=== PATIENT | female | born 1935 | race Caucasian/White ===

== ENCOUNTER → 2017-08-16 | Outpatient (CLI) | payer OTHER ==
[~2017-08-16] MED LIST: ACIDOPHILUS1 EAC2 PO; ALBU90OI INH; ALBU90OI61 INH; AMLO5 PO; ASPI325 PO; ASPI81CH PO; ATOR10 PO; AZIT250 PO; BUDE.25 INH; CALMAGZIN PO; CHOL10002 PO; CLON.1 PO; CLOP75 PO; CYMBALTA; DILT180 PO; DILT240ER PO; DILTIAZEM 24HR180 MG PO; DOCU100 PO; DOXE25 PO; Dulcolax5 MG PO; ESTR2 PO; FLUSAL5005 IH; FURO20 PO; GAVILAX17 GM PO; HYDACE5 PO; HYDCHL25 PO; HYDRA50 PO; IBUP400 PO; IPRAOI INH; Ipratr-Albuterol3 ML INH; LEVFLO500 PO; LEVO750 PO; LISI20 PO; LORA.5 PO; LORA10ER PO; METAMUCIL POWD174 GM PO; METO50 PO; Miralax17 GM PO; OMEP20ER PO; OXYB5 PO; POTCHL10ER PO; PRED10 PO; PREMARIN; PSYL5.85P PO; SALONPAS PATCH1 EACH TOP; SALONPAS TOP; Trihexyphenidyl2 MG PO
[2017-08-16 12:13] LABS: BASOPHILS ABSOLUTE AUTO 0.03 K/mm3 (0.00-0.23); BASOPHILS PERCENT AUTO 0 % (0-2); EOSINOPHILS ABSOLUTE AUTO 0.02 K/mm3 (0.00-0.68); EOSINOPHILS PERCENT AUTO 0 % (0-6); Hematocrit 26.8 % (33.0-51.0); Hemoglobin 9.1 g/dL (11.5-16.0); IMMATURE GRAN ABSOLUTE AUTO 0.09 K/mm3 (0.00-0.10); IMMATURE GRAN PERCENT AUTO 1 % (0-1); LYMPHOCYTES ABSOLUTE AUTO 1.24 K/mm3 (0.84-5.20); LYMPHOCYTES PERCENT AUTO 11 % (21-46); MONOCYTES ABSOLUTE AUTO 1.35 K/mm3 (0.16-1.47); MONOCYTES PERCENT AUTO 12 % (4-13); Mean Corpuscular HGB 29.6 pg (26.0-34.0); Mean Corpuscular Volume 87 fL (80-100); Mean Platelet Volume 11.2 fL (9.1-12.4); NEUTROPHILS ABSOLUTE AUTO 8.55 K/mm3 (1.96-9.15); NEUTROPHILS PERCENT AUTO 76 % (41-73); Platelet Count 351 K/mm3 (150-400); RDW Coefficient Variation 13.5 % (11.7-14.2); Red Blood Cell Count 3.07 M/mm3 (3.80-5.20); White Blood Cell Count 11.28 K/mm3 (4.00-11.30)
== END ==
LOC: LAB SHORT 12:06
PROVIDERS: Family Medicine
DX: J18.0 Bronchopneumonia, unspecified organism (principal)
CPT/HCPCS: 83880; 85025

== ENCOUNTER 2017-08-18 11:46 | Inpatient (IN) | payer OTHER ==
[~2017-08-18] VITALS: Ht 165.1 cm; Wt 62.7 kg
[~2017-08-18 11:46] MED LIST changes: -ACIDOPHILUS1 EAC2 PO; -ASPI81CH PO; -ATOR10 PO; -BUDE.25 INH; -CHOL10002 PO; -GAVILAX17 GM PO; -Ipratr-Albuterol3 ML INH; -METAMUCIL POWD174 GM PO; -OXYB5 PO; -SALONPAS PATCH1 EACH TOP
[2017-08-18 13:19] LABS: BASOPHILS ABSOLUTE AUTO 0.02 K/mm3 (0.00-0.23); BASOPHILS PERCENT AUTO 0 % (0-2); EOSINOPHILS PERCENT AUTO 1 % (0-6); Hematocrit 32.3 % (33.0-51.0); Hemoglobin 10.8 g/dL (11.5-16.0); IMMATURE GRAN ABSOLUTE AUTO 0.24 K/mm3 (0.00-0.10); IMMATURE GRAN PERCENT AUTO 2 % (0-1); LYMPHOCYTES ABSOLUTE AUTO 1.72 K/mm3 (0.84-5.20); LYMPHOCYTES PERCENT AUTO 16 % (21-46); MONOCYTES ABSOLUTE AUTO 1.18 K/mm3 (0.16-1.47); MONOCYTES PERCENT AUTO 11 % (4-13); Mean Corpuscular HGB 29.8 pg (26.0-34.0); Mean Corpuscular HGB Conc 33.4 g/dL (31.5-36.5); Mean Corpuscular Volume 89 fL (80-100); Mean Platelet Volume 10.5 fL (9.1-12.4); NEUTROPHILS PERCENT AUTO 70 % (41-73); Platelet Count 448 K/mm3 (150-400); RDW Coefficient Variation 13.6 % (11.7-14.2); RDW Standard Deviation 44.8 fL (35.1-46.3); Red Blood Cell Count 3.62 M/mm3 (3.80-5.20); White Blood Cell Count 10.96 K/mm3 (4.00-11.30)
[2017-08-18 13:38] LABS: Alanine Aminotransfer (ALT/SGP 24 U/L (12-78); Albumin, Blood 2.8 g/dL (3.4-5.0); Albumin/Globulin Ratio 0.7 (0.8-1.8); Alk Phos 80 U/L (50-136); Anion Gap 8 mmol/L (6-16); Aspartate Aminotrans (AST/SGOT 18 U/L (12-37); Bilirubin, Total 0.3 mg/dL (0.1-1.0); Blood Urea Nitrogen 10 mg/dL (8-24); Bun/Creatinine Ratio 17.7 (12.0-20.0); CO2, Blood 28 mmol/L (21-32); Calcium, Blood 9.1 mg/dL (8.5-10.1); Chloride, Blood 99 mmol/L (98-108); Creatinine, Blood 0.57 mg/dL (0.40-1.00); Glomerular Filtration Rate >60 (60-); Glucose, Blood 86 mg/dL (70-99); Sodium, Blood 135 mmol/L (136-145); Total Protein, Blood 6.8 g/dL (6.4-8.2)
[2017-08-18] MEDS ORDERED: ATOR10 PO (15:35)
[2017-08-18] MEDS ORDERED: CHOL10002 PO (15:36)
[2017-08-18] MEDS ORDERED: METAMUCIL POWD174 GM PO (20:10)
[2017-08-18] MEDS ORDERED: OXYB5 PO (20:12)
[2017-08-18] MEDS ORDERED: ASPI81CH PO (22:22)
[2017-08-19 16:25] LABS: Influenza A Negative (NEGATIVE); Influenza B Negative (NEGATIVE)
[2017-08-23] MEDS ORDERED: BUDE.25 INH (12:04)
[2017-08-23] MEDS ORDERED: LEVO750 PO (12:05)
[2017-08-23] MEDS ORDERED: ACIDOPHILUS1 EAC2 PO (12:07)
[2017-08-23] MEDS ORDERED: Ipratr-Albuterol3 ML INH (12:10)
[2017-08-23] MEDS ORDERED: GAVILAX17 GM PO (12:23)
[2017-08-23] MEDS ORDERED: SALONPAS PATCH1 EACH TOP (12:24)
== END 2017-08-23 13:39 | disposition home or self-care (01) | DRG 189 ==
LOC: ER 11:46 → MEDS 13:55
PROVIDERS: Emergency Medicine; Internal Medicine
DX: J96.01 Acute respiratory failure with hypoxia (principal); J18.9 Pneumonia, unspecified organism; I11.0 Hypertensive heart disease with heart failure; J44.0 Chronic obstructive pulmonary disease with (acute) lower respiratory infection; I50.30 Unspecified diastolic (congestive) heart failure; J44.1 Chronic obstructive pulmonary disease with (acute) exacerbation; Z66 Do not resuscitate; Z85.118 Personal history of other malignant neoplasm of bronchus and lung; Z92.3 Personal history of irradiation; Z87.891 Personal history of nicotine dependence; Z88.5 Allergy status to narcotic agent; Z88.8 Allergy status to other drugs, medicaments and biological substances; Z91.048 Other nonmedicinal substance allergy status; Z79.02 Long term (current) use of antithrombotics/antiplatelets; Z79.82 Long term (current) use of aspirin; Z79.899 Other long term (current) drug therapy
CPT/HCPCS: 36415; 71046; 80053; 83605; 83880; 85025; 87040; 87070; 87205; 87804; 93005; 93010; 94640; 94667; 94668; 94760; 94761; 99285; J1650; J1956; J2543; J7030

== ENCOUNTER → 2017-11-26 | Outpatient (CLI) | payer OTHER ==
[~2017-11-26] MED LIST changes: +ACIDOPHILUS1 EAC2 PO; +ASPI81CH PO; +ATOR10 PO; +BUDE.25 INH; +CHOL10002 PO; +GAVILAX17 GM PO; +Ipratr-Albuterol3 ML INH; +METAMUCIL POWD174 GM PO; +OXYB5 PO; +SALONPAS PATCH1 EACH TOP
== END ==
LOC: PLD 13:56 → LAB SHORT 13:56
DX: D48.5 Neoplasm of uncertain behavior of skin (principal)
CPT/HCPCS: 88304

== ENCOUNTER 2018-07-28 12:03 | Inpatient (IN) | payer OTHER ==
[~2018-07-28] VITALS: Ht 165.1 cm; Wt 64.8 kg
[~2018-07-28 12:03] MED LIST changes: -ALPR.5 PO; -CLARITIN10 MG PO; -Ferrous Sulfat325 M2 PO; -OMEPRAZOLE MAGN20 MG PO
[2018-07-28 17:15] LABS: Hematocrit 22.6 % (33.0-51.0); Hemoglobin 6.6 g/dL (11.5-16.0)
[2018-07-28 20:40] LABS: Percent Saturation 7.9 % (15.0-50.0)
[2018-07-29 04:37] LABS: BASOPHILS ABSOLUTE AUTO 0.03 K/mm3 (0.00-0.23); BASOPHILS PERCENT AUTO 0 % (0-2); EOSINOPHILS ABSOLUTE AUTO 0.11 K/mm3 (0.00-0.68); EOSINOPHILS PERCENT AUTO 1 % (0-6); Hematocrit 24.7 % (33.0-51.0); Hemoglobin 7.5 g/dL (11.5-16.0); IMMATURE GRAN ABSOLUTE AUTO 0.04 K/mm3 (0.00-0.10); IMMATURE GRAN PERCENT AUTO 0 % (0-1); LYMPHOCYTES ABSOLUTE AUTO 0.77 K/mm3 (0.84-5.20); LYMPHOCYTES PERCENT AUTO 8 % (21-46); MONOCYTES ABSOLUTE AUTO 0.97 K/mm3 (0.16-1.47); MONOCYTES PERCENT AUTO 11 % (4-13); Mean Corpuscular HGB 23.1 pg (26.0-34.0); Mean Corpuscular HGB Conc 30.4 g/dL (31.5-36.5); Mean Corpuscular Volume 76 fL (80-100); Mean Platelet Volume 10.7 fL (9.1-12.4); NEUTROPHILS ABSOLUTE AUTO 7.32 K/mm3 (1.96-9.15); NEUTROPHILS PERCENT AUTO 79 % (41-73); Platelet Count 334 K/mm3 (150-400); RDW Coefficient Variation 16.7 % (11.7-14.2); RDW Standard Deviation 46.6 fL (35.1-46.3); Red Blood Cell Count 3.25 M/mm3 (3.80-5.20); White Blood Cell Count 9.24 K/mm3 (4.00-11.30)
[2018-07-30 05:09] LABS: BASOPHILS ABSOLUTE AUTO 0.02 K/mm3 (0.00-0.23); BASOPHILS PERCENT AUTO 0 % (0-2); EOSINOPHILS ABSOLUTE AUTO 0.04 K/mm3 (0.00-0.68); EOSINOPHILS PERCENT AUTO 0 % (0-6); Hematocrit 23.4 % (33.0-51.0); Hemoglobin 7.1 g/dL (11.5-16.0); IMMATURE GRAN ABSOLUTE AUTO 0.05 K/mm3 (0.00-0.10); IMMATURE GRAN PERCENT AUTO 1 % (0-1); LYMPHOCYTES ABSOLUTE AUTO 0.93 K/mm3 (0.84-5.20); LYMPHOCYTES PERCENT AUTO 10 % (21-46); MONOCYTES ABSOLUTE AUTO 1.13 K/mm3 (0.16-1.47); MONOCYTES PERCENT AUTO 12 % (4-13); Mean Corpuscular HGB Conc 30.3 g/dL (31.5-36.5); Mean Corpuscular Volume 76 fL (80-100); NEUTROPHILS ABSOLUTE AUTO 7.24 K/mm3 (1.96-9.15); NEUTROPHILS PERCENT AUTO 77 % (41-73); Platelet Count 329 K/mm3 (150-400); RDW Coefficient Variation 17.3 % (11.7-14.2); RDW Standard Deviation 47.4 fL (35.1-46.3); Red Blood Cell Count 3.09 M/mm3 (3.80-5.20); White Blood Cell Count 9.41 K/mm3 (4.00-11.30)
[2018-07-31 05:19] LABS: BASOPHILS ABSOLUTE AUTO 0.03 K/mm3 (0.00-0.23); BASOPHILS PERCENT AUTO 0 % (0-2); EOSINOPHILS ABSOLUTE AUTO 0.17 K/mm3 (0.00-0.68); EOSINOPHILS PERCENT AUTO 2 % (0-6); Hematocrit 25.3 % (33.0-51.0); Hemoglobin 7.7 g/dL (11.5-16.0); IMMATURE GRAN ABSOLUTE AUTO 0.07 K/mm3 (0.00-0.10); IMMATURE GRAN PERCENT AUTO 1 % (0-1); LYMPHOCYTES ABSOLUTE AUTO 0.93 K/mm3 (0.84-5.20); LYMPHOCYTES PERCENT AUTO 9 % (21-46); MONOCYTES ABSOLUTE AUTO 1.27 K/mm3 (0.16-1.47); MONOCYTES PERCENT AUTO 12 % (4-13); Mean Corpuscular HGB 23.5 pg (26.0-34.0); Mean Corpuscular HGB Conc 30.4 g/dL (31.5-36.5); Mean Corpuscular Volume 77 fL (80-100); Mean Platelet Volume 10.8 fL (9.1-12.4); NEUTROPHILS ABSOLUTE AUTO 7.74 K/mm3 (1.96-9.15); NEUTROPHILS PERCENT AUTO 76 % (41-73); Platelet Count 302 K/mm3 (150-400); RDW Coefficient Variation 17.6 % (11.7-14.2); RDW Standard Deviation 49.1 fL (35.1-46.3); Red Blood Cell Count 3.28 M/mm3 (3.80-5.20); White Blood Cell Count 10.21 K/mm3 (4.00-11.30)
[2018-08-01 05:39] LABS: BASOPHILS ABSOLUTE AUTO 0.04 K/mm3 (0.00-0.23); BASOPHILS PERCENT AUTO 0 % (0-2); EOSINOPHILS ABSOLUTE AUTO 0.24 K/mm3 (0.00-0.68); EOSINOPHILS PERCENT AUTO 2 % (0-6); Hematocrit 29.7 % (33.0-51.0); Hemoglobin 9.1 g/dL (11.5-16.0); IMMATURE GRAN ABSOLUTE AUTO 0.15 K/mm3 (0.00-0.10); IMMATURE GRAN PERCENT AUTO 1 % (0-1); LYMPHOCYTES ABSOLUTE AUTO 0.71 K/mm3 (0.84-5.20); LYMPHOCYTES PERCENT AUTO 7 % (21-46); MONOCYTES ABSOLUTE AUTO 1.28 K/mm3 (0.16-1.47); MONOCYTES PERCENT AUTO 12 % (4-13); Mean Corpuscular HGB Conc 30.6 g/dL (31.5-36.5); Mean Corpuscular Volume 78 fL (80-100); Mean Platelet Volume 10.9 fL (9.1-12.4); NEUTROPHILS ABSOLUTE AUTO 8.47 K/mm3 (1.96-9.15); NEUTROPHILS PERCENT AUTO 78 % (41-73); NRBC ABSOLUTE 0.02 K/mm3 (0.00-0.02); NRBC Auto 0.2 /100 WBC (0.0-0.2); Platelet Count 328 K/mm3 (150-400); RDW Coefficient Variation 18.1 % (11.7-14.2); RDW Standard Deviation 50.2 fL (35.1-46.3); Red Blood Cell Count 3.79 M/mm3 (3.80-5.20); White Blood Cell Count 10.89 K/mm3 (4.00-11.30)
[2018-08-02 05:30] LABS: BASOPHILS ABSOLUTE AUTO 0.03 K/mm3 (0.00-0.23); BASOPHILS PERCENT AUTO 0 % (0-2); EOSINOPHILS ABSOLUTE AUTO 0.24 K/mm3 (0.00-0.68); EOSINOPHILS PERCENT AUTO 3 % (0-6); Hematocrit 30.8 % (33.0-51.0); Hemoglobin 9.4 g/dL (11.5-16.0); IMMATURE GRAN ABSOLUTE AUTO 0.11 K/mm3 (0.00-0.10); IMMATURE GRAN PERCENT AUTO 1 % (0-1); LYMPHOCYTES ABSOLUTE AUTO 0.73 K/mm3 (0.84-5.20); LYMPHOCYTES PERCENT AUTO 8 % (21-46); MONOCYTES ABSOLUTE AUTO 1.02 K/mm3 (0.16-1.47); MONOCYTES PERCENT AUTO 11 % (4-13); Mean Corpuscular HGB Conc 30.5 g/dL (31.5-36.5); Mean Corpuscular Volume 79 fL (80-100); Mean Platelet Volume 10.6 fL (9.1-12.4); NEUTROPHILS ABSOLUTE AUTO 6.83 K/mm3 (1.96-9.15); NEUTROPHILS PERCENT AUTO 76 % (41-73); Platelet Count 313 K/mm3 (150-400); RDW Coefficient Variation 18.8 % (11.7-14.2); RDW Standard Deviation 51.3 fL (35.1-46.3); Red Blood Cell Count 3.91 M/mm3 (3.80-5.20); White Blood Cell Count 8.96 K/mm3 (4.00-11.30)
[2018-08-02] MEDS ORDERED: CLARITIN10 MG PO (11:21)
[2018-08-02] MEDS ORDERED: DOCU100 PO (11:22)
[2018-08-02] MEDS ORDERED: OMEPRAZOLE MAGN20 MG PO (11:22)
[2018-08-02] MEDS ORDERED: ALPR.5 PO (11:23)
[2018-08-02] MEDS ORDERED: Ferrous Sulfat325 M2 PO (11:24)
== END 2018-08-02 12:23 | disposition home or self-care (01) | DRG 381 ==
LOC: ER 12:03 → MEDS 12:04 → ER 18:40 → MEDS 18:45 → ENPENDDIS 08-02 10:22 → MEDS 08-02 12:23
PROVIDERS: Emergency Medicine; Hospitalist; Internal Medicine Gastroenterology
PROC: 0DBN8ZX Excision of Sigmoid Colon, Via Natural or Artificial Opening Endoscopic, Diagnostic (ICD-10-PCS; 2018-07-30)
PROC: 0DJ08ZZ Inspection of Upper Intestinal Tract, Via Natural or Artificial Opening Endoscopic (ICD-10-PCS; principal; 2018-07-30 15:30)
PROC: 0DBK8ZX Excision of Ascending Colon, Via Natural or Artificial Opening Endoscopic, Diagnostic (ICD-10-PCS; 2018-07-30 15:30)
DX: K22.11 Ulcer of esophagus with bleeding (principal); I50.30 Unspecified diastolic (congestive) heart failure; B37.81 Candidal esophagitis; G45.9 Transient cerebral ischemic attack, unspecified; D50.9 Iron deficiency anemia, unspecified; J44.9 Chronic obstructive pulmonary disease, unspecified; K64.8 Other hemorrhoids; K57.30 Diverticulosis of large intestine without perforation or abscess without bleeding; K44.9 Diaphragmatic hernia without obstruction or gangrene; I11.0 Hypertensive heart disease with heart failure; R91.8 Other nonspecific abnormal finding of lung field; Z99.81 Dependence on supplemental oxygen; Z79.82 Long term (current) use of aspirin; R06.00 Dyspnea, unspecified
CPT/HCPCS: 36415; 36430; 71046; 82272; 82728; 83540; 83550; 84484; 85014; 85018; 85025; 86850; 86900; 86901; 86923; 93005; 93010; 94640; 94760; 96365; 96366; 97162; 97530; 99285-25; G0378; G8978; G8979; G8980; J2250; J2370; J2916; J7050; J7120; P9016

== ENCOUNTER → 2018-07-28 | Outpatient (CLI) | payer OTHER ==
[~2018-07-28] MED LIST changes: +ALPR.5 PO; +CLARITIN10 MG PO; +Ferrous Sulfat325 M2 PO; +OMEPRAZOLE MAGN20 MG PO
[2018-07-28 11:11] LABS: BASOPHILS ABSOLUTE AUTO 0.03 K/mm3 (0.00-0.23); BASOPHILS PERCENT AUTO 0 % (0-2); EOSINOPHILS ABSOLUTE AUTO 0.09 K/mm3 (0.00-0.68); EOSINOPHILS PERCENT AUTO 1 % (0-6); Hematocrit 23.3 % (33.0-51.0); IMMATURE GRAN ABSOLUTE AUTO 0.05 K/mm3 (0.00-0.10); IMMATURE GRAN PERCENT AUTO 1 % (0-1); LYMPHOCYTES PERCENT AUTO 11 % (21-46); MONOCYTES ABSOLUTE AUTO 0.99 K/mm3 (0.16-1.47); MONOCYTES PERCENT AUTO 11 % (4-13); Mean Corpuscular HGB 22.2 pg (26.0-34.0); Mean Corpuscular Volume 74 fL (80-100); Mean Platelet Volume 10.8 fL (9.1-12.4); NEUTROPHILS ABSOLUTE AUTO 7.29 K/mm3 (1.96-9.15); NEUTROPHILS PERCENT AUTO 77 % (41-73); Platelet Count 396 K/mm3 (150-400); RDW Coefficient Variation 16.9 % (11.7-14.2); RDW Standard Deviation 45.3 fL (35.1-46.3); Red Blood Cell Count 3.15 M/mm3 (3.80-5.20); White Blood Cell Count 9.45 K/mm3 (4.00-11.30)
[2018-07-28 11:26] LABS: Alanine Aminotransfer (ALT/SGP 25 U/L (12-78); Albumin/Globulin Ratio 0.8 (0.8-1.8); Alk Phos 74 U/L (40-126); Anion Gap 9 mmol/L (6-16); Aspartate Aminotrans (AST/SGOT 18 U/L (12-37); Bilirubin, Total 0.3 mg/dL (0.1-1.0); Blood Urea Nitrogen 14 mg/dL (8-24); Bun/Creatinine Ratio 19.4 (12.0-20.0); CO2, Blood 30 mmol/L (21-32); Calcium, Blood 9.1 mg/dL (8.5-10.1); Chloride, Blood 97 mmol/L (98-108); Creatinine, Blood 0.72 mg/dL (0.40-1.00); Globulin, Blood 3.6 g/dL (2.2-4.0); Glomerular Filtration Rate >60 (60-); Glucose, Blood 89 mg/dL (70-99); Potassium, Blood 3.2 mmol/L (3.5-5.5); Sodium, Blood 136 mmol/L (136-145); Total Protein, Blood 6.6 g/dL (6.4-8.2); Troponin I <0.017 ng/mL (0.000-0.040)
== END | disposition home or self-care (01) ==
LOC: LAB EV 11:07 → LAB SHORT 11:07
PROVIDERS: Physician Assistant
DX: R06.02 Shortness of breath (principal)
CPT/HCPCS: 80053; 83880; 84484; 85025

== ENCOUNTER 2018-12-01 18:13 | Inpatient (IN) | payer OTHER ==
[~2018-12-01] VITALS: Ht 167.6 cm; Wt 60.0 kg
[~2018-12-01 18:13] MED LIST changes: +ALPR.5 PO; -ASPI81CH PO; +Aspirin EC81 MG PO; +CLARITIN10 MG PO; +Ferrous Sulfat325 M2 PO; +Lopressor 25 mg25 MG PO; -METO50 PO; -OMEP20ER PO; +OMEPRAZOLE MAGN20 MG PO; +ZESTRIL40 MG PO
[2018-12-01 20:04] LABS: BASOPHILS ABSOLUTE AUTO 0.02 K/mm3 (0.00-0.23); BASOPHILS PERCENT AUTO 0 % (0-2); EOSINOPHILS ABSOLUTE AUTO 0.08 K/mm3 (0.00-0.68); EOSINOPHILS PERCENT AUTO 1 % (0-6); Hematocrit 35.7 % (33.0-51.0); Hemoglobin 11.8 g/dL (11.5-16.0); IMMATURE GRAN PERCENT AUTO 1 % (0-1); LYMPHOCYTES ABSOLUTE AUTO 1.41 K/mm3 (0.84-5.20); LYMPHOCYTES PERCENT AUTO 13 % (21-46); MONOCYTES ABSOLUTE AUTO 0.76 K/mm3 (0.16-1.47); MONOCYTES PERCENT AUTO 7 % (4-13); Mean Corpuscular HGB 30.7 pg (26.0-34.0); Mean Corpuscular HGB Conc 33.1 g/dL (31.5-36.5); Mean Corpuscular Volume 93 fL (80-100); Mean Platelet Volume 12.7 fL (9.1-12.4); NEUTROPHILS ABSOLUTE AUTO 8.71 K/mm3 (1.96-9.15); NEUTROPHILS PERCENT AUTO 79 % (41-73); Platelet Count 250 K/mm3 (150-400); RDW Coefficient Variation 13.2 % (11.7-14.2); RDW Standard Deviation 44.9 fL (35.1-46.3); Red Blood Cell Count 3.84 M/mm3 (3.80-5.20); White Blood Cell Count 11.08 K/mm3 (4.00-11.30)
[2018-12-01 20:29] LABS: Alanine Aminotransfer (ALT/SGP 19 U/L (12-78); Albumin, Blood 3.5 g/dL (3.4-5.0); Albumin/Globulin Ratio 1.1 (0.8-1.8); Alk Phos 91 U/L (50-136); Anion Gap 4 mmol/L (6-16); Aspartate Aminotrans (AST/SGOT 15 U/L (12-37); Bilirubin, Total 0.3 mg/dL (0.1-1.0); Blood Urea Nitrogen 19 mg/dL (8-24); Bun/Creatinine Ratio 30.2 (12.0-20.0); CO2, Blood 31 mmol/L (21-32); Calcium, Blood 9.3 mg/dL (8.5-10.1); Chloride, Blood 101 mmol/L (98-108); Creatinine, Blood 0.63 mg/dL (0.40-1.00); Globulin, Blood 3.3 g/dL (2.2-4.0); Glomerular Filtration Rate >60 (60-); Glucose, Blood 129 mg/dL (70-99); Potassium, Blood 3.6 mmol/L (3.5-5.5); Sodium, Blood 136 mmol/L (136-145); Total Protein, Blood 6.8 g/dL (6.4-8.2)
[2018-12-01 23:04] LABS: Source, Urine Clean Catch
[2018-12-01 23:07] LABS: Bilirubin, Urine Neg (Neg); Blood, Urine Neg (Neg); Glucose Qualitative, Urine Neg (Neg); Ketones, Urine Neg (Neg); Leukocyte Esterase, Urine 1+ (Neg); Nitrite, Urine Pos (Neg); Protein, Urine 2+ (Neg); Urobilinogen, Urine NORM (Normal)
[2018-12-01 23:13] LABS: Appearance, Urine Clear (Clear); Color, Urine Yellow (P-Yellow)
[2018-12-01 23:14] LABS: Bacteria Many /hpf; Red Blood Cells, Urine 0-2 /hpf (0-2); Squamous Epithelial Cells Not Seen /hpf (Few)
--- NOTE | 2018-12-01 23:33 | NUR ---
PHYSICIAN COMMUNICATION [id number] NOTIFIED PT REQUEST TO TAKE BEDTIME MEDICATIONS, PT STS SHE DID NOT TAKE BEDTIME MEDICATIONS THIS EVENING. DR. JACLYN PADGETT'D TO START PT VIT D, METOPROLOL, DITROPAN, APRESOLINE, LASIX, ASA, AND CATAPRES TONIGHT. PROVIDER AWARE LOVENOX GIVEN PER ORDER. ORDER FOR OT 10 MG PO FLEXERIL GIVEN FOR SPASMS IN LLE. NOTIFIED OF PT REPORT OF HOME MED, INHALER AND PHARM SUBSTITUTION, ORDER FOR ASMANEX GIVEN ENTERED. ORDER FOR ZOFRAN GIVEN ENTERED.
--- NOTE | 2018-12-02 06:25 | NUR ---
SHIFT SUMMARY PT A&O X4 T/O SHIFT. S/P FALL, LLE EXT ROTATED; PPPX4. PT C/O PAINFUL SPASMS IN LLE. PAIN MANAGED PER EMAR. CONT. OXIMETRY IN PLACE; O2 VIA NC AT 2L PER PT BASELINE. PT DENIES SOB, CP, NAUSEA AND N/T. RODRIGUEZ DRAINING WELL; STAT-LOCK IN PLACE. SCD'T TO RLE. PT REPOSITIONED PT TOLERATED; EXT ELEVATED. PT DAUGHTER IN ROOM T/O SHIFT. CALL LIGHT IN REACH; PT DEMONSTRATES USE.
--- NOTE | 2018-12-02 06:58 | NUR ---
DR STRONG HERE TO SEE PT. FAMILY PRESENT.
--- NOTE | 2018-12-02 10:05 | NUR ---
PT RECENTLY BACK FROM IMAGING. PT MED WITH SIP OF WATER NOW AND EARLIER BEFORE GOING TO HAVE IMAGING. MED NOW MED WAS NOT AVAIL FROM PHARMACY EARLIER THIS AM. IV ABX STARTED. PT NOW RESTING QUIETLY. FAMILY IN ROOM. TRACTION IN PLACE.
--- NOTE | 2018-12-02 10:23 | NUR ---
DR HARO HERE IN ROOM TO SEE PT.
--- NOTE | 2018-12-02 11:48 | NUR ---
PT OUT OF ROOM FOR PROCEDURE IN OWN BED. FAMILY WITH PT.
--- NOTE | 2018-12-02 12:58 | NUR ---
PT TO SDS VIA BED FOR L FREDIS HIP W/DR STRONG. DR RASMUSSEN WAS CALLED TO [facility] FOR EPIDURAL, DELAYED BACK TO OR. GAVE FENTANYL 25 MCG PER PRN ORDER ON LORIN WAGNER'D WITH DR RASMUSSEN. NOZIN SWABS x3 DONE PER ORDER.
--- NOTE | 2018-12-02 16:34 | NUR ---
PT RECENTLY BACK FROM HAVING PROCEDURE. PT DENIES PAIN AT THIS TIME. REPORTS SLIGHT NAUSEA BUT REPORTS DOES NOT NEED MEDICATION AT THIS TIME. DRESSING TO L HIP C/D/I. FAMILY PRESENT. VSS. WIGGLES TOES. CAP REFILL BRISK. BE, PAS TO BLE. PT HAS POLAR PAC IN PLACE.
--- NOTE | 2018-12-02 19:10 | NUR ---
SHIFT SUMMARY PT HAD PROCEDURE TODAY. FAMILY PRESENT EARLIER AND NOW. PT VSS. PT HAS AQUACEL DRESSING TO L HIP. PAS, TEDS, AND POLAR PAC IN PLACE. PT BEEN ASSISTED WITH ADL'S PRN. ALARM IN PLACE. CALL LIGHT IN REACH. JAQUELINE RN GIVEN REPORT.
[2018-12-03 04:56] LABS: BASOPHILS ABSOLUTE AUTO 0.01 K/mm3 (0.00-0.23); BASOPHILS PERCENT AUTO 0 % (0-2); EOSINOPHILS PERCENT AUTO 0 % (0-6); Hematocrit 26.9 % (33.0-51.0); Hemoglobin 8.7 g/dL (11.5-16.0); IMMATURE GRAN ABSOLUTE AUTO 0.04 K/mm3 (0.00-0.10); IMMATURE GRAN PERCENT AUTO 0 % (0-1); LYMPHOCYTES PERCENT AUTO 7 % (21-46); MONOCYTES PERCENT AUTO 11 % (4-13); Mean Corpuscular HGB 30.5 pg (26.0-34.0); Mean Corpuscular HGB Conc 32.3 g/dL (31.5-36.5); Mean Corpuscular Volume 94 fL (80-100); Mean Platelet Volume 11.6 fL (9.1-12.4); NEUTROPHILS ABSOLUTE AUTO 8.41 K/mm3 (1.96-9.15); NEUTROPHILS PERCENT AUTO 82 % (41-73); Platelet Count 185 K/mm3 (150-400); RDW Coefficient Variation 13.2 % (11.7-14.2); RDW Standard Deviation 45.8 fL (35.1-46.3); Red Blood Cell Count 2.85 M/mm3 (3.80-5.20); White Blood Cell Count 10.26 K/mm3 (4.00-11.30)
[2018-12-03 05:11] LABS: Anion Gap 5 mmol/L (6-16); Blood Urea Nitrogen 13 mg/dL (8-24); Bun/Creatinine Ratio 25.3 (12.0-20.0); CO2, Blood 26 mmol/L (21-32); Calcium, Blood 7.7 mg/dL (8.5-10.1); Chloride, Blood 108 mmol/L (98-108); Creatinine, Blood 0.51 mg/dL (0.40-1.00); Glomerular Filtration Rate >60 (60-); Glucose, Blood 124 mg/dL (70-99); Potassium, Blood 3.6 mmol/L (3.5-5.5); Sodium, Blood 139 mmol/L (136-145)
--- NOTE | 2018-12-03 05:33 | NUR ---
SHIFT SUMMARY PT POD#1. AAOX4. DRESSING TO LEFT HIP C/D/I. DISCOMFORT CONTROLLED WITH FLEXERIL + 25MCG FENTANYL. NO NAUSEA. PT NEEDS ENCOURAGEMENT TO REPOSITION + MOVE IN BED. ENCOURAGE DEEP BREATHING. PT RESTED INTERMITTENTLY T/O NIGHT, IVF + ABX PER ORDERS. CALL LIGHT IN REACH + PT USES FOR ASSISTANCE.
--- NOTE | 2018-12-03 18:01 | NUR ---
SHIFT SUMMARY PT DID WELL WITH THERAPY. REPORTS PAIN IS WELL MANAGED. TOLERATING DIET. RODRIGUEZ D/C'D. DISCUSSED BOWEL CARE WITH PT, PT HESITANT BUT WITH ENCOURAGEMENT TOOK LAXATIVE.
--- NOTE | 2018-12-04 07:49 | NUR ---
SHIFT SUMMARY PT IS POD 2 LEFT HIP REPAIR. PLAN IS FOR SNF TODAY IF BED AVAILABLE. PT IS ON 2L VIA NC CHRONICALLY, NO CHANGES. PT IS VOIDING SMALL AMOUNTS. 1 NORCO FOR PAIN EVERY 3-4 HOURS. PT IS A&O, ABLE TO MAKE NEEDS KNOWN. AQUACEL C/D/I. SHE HAS SCATTERED BRUISING STARTING TO FORM ON HER LEFT SIDE AND BACK. SKIN TEAR TO LEFT ELBOW HAS BANDAID COVERAGE. PT IS ABLE TO PIVOT TO THE BEDSIDE COMMODE W/ SBA AND FWW. REPORT PASSED TO ONCOMING SHIFT.
--- NOTE | 2018-12-04 08:00 | NUR ---
PT RESTING WAKES TO VERBAL STIMULI PT STATED SHE IS WAITING TO HERE IF SHE GOES TO SNF TODAY OTHER SYKES DOING OK
--- NOTE | 2018-12-04 12:35 | NUR ---
PT SITTING UP IN CHAIR CALLED SS MESSAGE LEFT RE SNF PT GIVEN SUPP MOM GIVEN EARLIER
--- NOTE | 2018-12-04 16:24 | NUR ---
maulik hilliard report called to [facility] pt transported via [facility]
== END 2018-12-04 16:13 | DRG 470 ==
LOC: ER 18:13 → SURS 21:04
PROVIDERS: Emergency Medicine; Orthopaedic Surgery; ADMIT Hospitalist
PROC: 0SRS039 Replacement of Left Hip Joint, Femoral Surface with Ceramic Synthetic Substitute, Cemented, Open Approach (ICD-10-PCS; principal; 2018-12-02 12:30)
DX: S72.002A Fracture of unspecified part of neck of left femur, initial encounter for closed fracture (principal); I50.32 Chronic diastolic (congestive) heart failure; J96.11 Chronic respiratory failure with hypoxia; I11.0 Hypertensive heart disease with heart failure; M81.0 Age-related osteoporosis without current pathological fracture; W18.30XA Fall on same level, unspecified, initial encounter; J44.9 Chronic obstructive pulmonary disease, unspecified; I73.9 Peripheral vascular disease, unspecified; F41.9 Anxiety disorder, unspecified; Z85.118 Personal history of other malignant neoplasm of bronchus and lung; Z86.73 Personal history of transient ischemic attack (TIA), and cerebral infarction without residual deficits; K21.9 Gastro-esophageal reflux disease without esophagitis; Z99.81 Dependence on supplemental oxygen; Z87.891 Personal history of nicotine dependence; Z66 Do not resuscitate
CPT/HCPCS: 51702; 71045; 72170; 72192; 73502; 73552; 80048; 80053; 81001; 85025; 87077; 87086; 87186; 88305; 88311; 94640; 94762; 96374-59; 96375-59; 97110; 97116; 97162; 97165; 97530; 97535; 99285-25; A9270-GY; C1713; C1776; J0690; J0696; J1100; J1650; J1940; J2270; J2405; J2704; J2710; J3010; J7030; J7120

== ENCOUNTER → 2019-01-15 | Outpatient (CLI) | payer OTHER | END | disposition home or self-care (01) | LOC: LAB 10:55 → LAB SHORT 10:55 | DX: R30.0 Dysuria (principal) | CPT/HCPCS: 87077; 87086; 87186 ==

== ENCOUNTER 2019-02-03 08:40 | Day surgery (SDC) | payer OTHER ==
[~2019-02-03] VITALS: Ht 167.6 cm; Wt 61.4 kg
[~2019-02-03 08:40] MED LIST changes: +ADVIL LIQUI-GE200 MG PO; +ALBU3IS INH; +MIRALAX17 GM PO; +QVAR REDIHALE10.6 GM INH; +SALONPAS GEL-P1 EACH
--- NOTE | 2019-02-03 13:27 | NUR ---
L GROIN SITE. L GROIN SITE SHEATH PULLED OUT AT 1313 WITH MANUAL PRESSURE BEING HELD BY BareedEE.
--- NOTE | 2019-02-03 14:46 | NUR ---
STENT AND ANGIOSEAL CARD GIVEN TO ADY CADENA.
--- NOTE | 2019-02-03 19:19 | NUR ---
END OF SHIFT; PT RECEIVED BILATERAL REVASCULAZATION OF LOWER EXTREMITIES WITH ONE STENT IN RIGHT LEG AND NONE IN LEFT LEG. GROIN SITES ARE CLEAN AND DRY. NO HEMATOMA EVIDIENT. PT IS RESTING WITH HOB AT 60 DEGREES AND STATES SHE HAS NO PAIN. BP IS OCCASIONALLY HTN AND HYDRALAZINE IS ADMIN X 1 FOR SAME. REPORT AND HAND OFF TO NOC SHIFT RN. VERDUZCO.
--- NOTE | 2019-02-03 21:00 | NUR ---
Assumed care of pt at approx 1900. L fem site free from blood, hematoma, or pain. Gauze remains free from blood, consistant with day shift. R fem site with angioseal with slight blood on the lower aspect of the dressing consistant with day shift, no hematoma, bleed, or tenderness. Pt alert and oriented, pleasant, with slight anxiety regarding blood pressure and home medication regiment. Daughter at bedside. This RN called Dr. Varghese to have home medications reconciled and awaiting medication orders at this time. No medications to give at present, but continuing to monitor for orders. Pt denies pain at this time. Pt compliant with femoral restrictions, alonso in place and present from [facility] d/t bilateral femeral access sites. Alonso patent and draining clear yellow urine. Pt able to make needs known, uses call light appropriately. Pedal pulses palp, sensation intact throughout. Will continue to monitor and assess as needed. See shift assessment for detailed assessment. No events on tele at this time.
--- NOTE | 2019-02-04 06:31 | NUR ---
Shift Summary VSS this shift, no acute changes on tele, pt in no apparent sign of distress. Right and left femoral sites remain unchanged from initial assessment, no s/sx hematoma or bleed. Pt remains alert and oriented, responds appropriately. Breathing remains easy and unlabored, denies SOB. Pt denies CP/pressure. Pt able to take pills whole with water. Calls appropriately, able to make needs known. Will continue to monitor.
--- NOTE | 2019-02-04 08:10 | NUR ---
INITIAL ASSESSMENT: PT IS AWAKE SITTING UP ON THE EDGE OF THE BED EATING BREAKFAST AND VISITING WITH HER DAUGHTER. PT IS ALERT AND OX3. PT DENIES PAIN AT THIS TIME. HRR, SR IN THE 70S PER TELEMETY. LS CTA, BIOX WNL ON 2L VIA NC. PT STATES THIS IS HER HOME DOSE. BT+. PPP. PT HAS SOME TRACE EDEMA TO LLE. VSS. AM MEDS GIVEN WHOLE WITH WATER, PT TOLERATED WELL. DISCUSSED WITH PATIENT SHE WILL LIKELY DISCHARGE TODAY. I ALSO TALKED WITH HER ABOUT TAKING OUT HER CATHETER TO MAKE SURE SHE IS ABLE TO VOID BEFORE DISCHARGE. PT DENIES OTHER NEEDS AT THIS TIME. CALL LIGHT IN REACH. WILL CONTINUE TO MONITOR.
--- NOTE | 2019-02-04 09:00 | NUR ---
PT IS DONE WITH BREAKFAST AND LYING DOWN IN BED. JENNIFER LOZA. PT DENIES OTHER NEEDS AT THIS TIME, CALL LIGHT IN REACH.
--- NOTE | 2019-02-04 09:45 | NUR ---
CALL PLACED TO CONTROL ROOM TO GET A HOLD OF DR. WHITE FOR DISCHARGE ORDERS. MD WILL RETURN CALL.
--- NOTE | 2019-02-04 12:30 | NUR ---
T/C [facility] SHE STATES DR. WHITE WILL BE TIGHED UP IN PROLONGED PROCEDURE; WANTS RN TO CONTACT HIS OFFICE AND SPEAK TO SIMÓN TO SETUP F/U APPT. PATIENT TO RESUME PREVIOUS MEDS. AND CAN BE DISCHARGED TO HOME.
--- NOTE | 2019-02-04 13:00 | NUR ---
SPOKE TO SIMÓN WHO SETUP APPT. FOR March AT 4PM.
--- NOTE | 2019-02-04 13:30 | NUR ---
IV TO L WRIST DISCONTINUED WITHOUT INCIDENT; DRESSING SECURED WITH COBAN. BILAT. GROIN SITES UNCHANGED; WENT OVER D/C INSTRUCTIONS WITH PATIENT AND HER SPOUSE; V/U AND GAVE WRITTEN SIGNATURE THAT SHE UNDERSTANDS INSTRUCTIONS. REMAINS ON OXYGEN; SPOUSE BROUGHT PATIENT'S OXYGEN, FROM HOME, TO TAKE HER HOME; ON 2L/NC.
[2019-02-04] MEDS ORDERED: CLOP75 PO (13:36)
--- NOTE | 2019-02-04 13:45 | NUR ---
DISCHARGED FROM HOSPITAL; TO PRIVATE CAR VIA W/C; BELONGINGS, INCLUDING CELLPHONE HOME WITH PATIENT; NO ACUTE C/O. PLAVIX RX TO BE CALLED TO [facility]; ADDED TO HOME MED. LIST.
== END 2019-02-04 13:45 | disposition home or self-care (01) ==
LOC: MHTC 08:40 → PCU 15:38 → MHTC 02-04 13:45
DX: I70.8 Atherosclerosis of other arteries (principal); I71.4 Abdominal aortic aneurysm, without rupture; I72.3 Aneurysm of iliac artery; I65.23 Occlusion and stenosis of bilateral carotid arteries; I73.9 Peripheral vascular disease, unspecified
CPT/HCPCS: 37220; 37221; 75625; 75710; 75716; 75774; 85347; 94640; 94760; 99152; 99153; A9270; C1725; C1760; C1769; C1876; C1887; C1894; J0360; J1644; J2250; J3010; J7030; Q9967

== ENCOUNTER → 2019-02-11 | Outpatient (CLI) | payer OTHER | END | disposition home or self-care (01) | LOC: LAB 16:29 → LAB SHORT 16:29 | DX: R30.0 Dysuria (principal) | CPT/HCPCS: 87077; 87086; 87186 ==

== ENCOUNTER 2019-02-12 11:13 | Emergency (ER) | payer OTHER ==
[~2019-02-12] VITALS: Ht 167.6 cm; Wt 60.9 kg
== END 2019-02-12 12:47 | disposition home or self-care (01) ==
LOC: ER 11:13
DX: R04.0 Epistaxis (principal); J44.9 Chronic obstructive pulmonary disease, unspecified; I10 Essential (primary) hypertension; F41.9 Anxiety disorder, unspecified; K21.9 Gastro-esophageal reflux disease without esophagitis; Z79.899 Other long term (current) drug therapy; Z87.891 Personal history of nicotine dependence
CPT/HCPCS: 99283

== ENCOUNTER 2019-02-15 23:18 | Emergency (ER) | payer OTHER ==
[~2019-02-15] VITALS: Ht 160 cm; Wt 59.0 kg
[2019-02-15] MEDS ORDERED: FURO20 PO (23:45)
[2019-02-16] LABS: BASOPHILS ABSOLUTE AUTO 0.03 K/mm3 (0.00-0.23); BASOPHILS PERCENT AUTO 0 % (0-2); EOSINOPHILS ABSOLUTE AUTO 0.17 K/mm3 (0.00-0.68); EOSINOPHILS PERCENT AUTO 1 % (0-6); Hematocrit 30.5 % (33.0-51.0); Hemoglobin 10.2 g/dL (11.5-16.0); IMMATURE GRAN ABSOLUTE AUTO 0.14 K/mm3 (0.00-0.10); IMMATURE GRAN PERCENT AUTO 1 % (0-1); LYMPHOCYTES PERCENT AUTO 9 % (21-46); MONOCYTES ABSOLUTE AUTO 0.98 K/mm3 (0.16-1.47); MONOCYTES PERCENT AUTO 8 % (4-13); Mean Corpuscular HGB 31.4 pg (26.0-34.0); Mean Corpuscular HGB Conc 33.4 g/dL (31.5-36.5); Mean Corpuscular Volume 94 fL (80-100); Mean Platelet Volume 10.2 fL (9.1-12.4); NEUTROPHILS ABSOLUTE AUTO 9.84 K/mm3 (1.96-9.15); NEUTROPHILS PERCENT AUTO 80 % (41-73); Platelet Count 386 K/mm3 (150-400); RDW Coefficient Variation 12.4 % (11.7-14.2); RDW Standard Deviation 42.2 fL (35.1-46.3); Red Blood Cell Count 3.25 M/mm3 (3.80-5.20); White Blood Cell Count 12.26 K/mm3 (4.00-11.30)
[2019-02-16 00:21] LABS: Alanine Aminotransfer (ALT/SGP 20 U/L (12-78); Albumin, Blood 3.6 g/dL (3.4-5.0); Albumin/Globulin Ratio 1.1 (0.8-1.8); Alk Phos 81 U/L (50-136); Anion Gap 4 mmol/L (6-16); Aspartate Aminotrans (AST/SGOT 23 U/L (12-37); Bilirubin, Total 0.3 mg/dL (0.1-1.0); Blood Urea Nitrogen 16 mg/dL (8-24); Bun/Creatinine Ratio 23.1 (12.0-20.0); CO2, Blood 32 mmol/L (21-32); Calcium, Blood 9.2 mg/dL (8.5-10.1); Chloride, Blood 99 mmol/L (98-108); Creatinine, Blood 0.69 mg/dL (0.40-1.00); Globulin, Blood 3.4 g/dL (2.2-4.0); Glomerular Filtration Rate >60 (60-); Glucose, Blood 102 mg/dL (70-99); Potassium, Blood 3.4 mmol/L (3.5-5.5); Sodium, Blood 135 mmol/L (136-145); Troponin I <0.015 ng/mL (0.000-0.040)
== END 2019-02-16 01:18 | disposition home or self-care (01) ==
LOC: ER 23:18
PROVIDERS: Physician Assistant
DX: S30.1XXA Contusion of abdominal wall, initial encounter (principal); M54.5 Low back pain; M54.6 Pain in thoracic spine; W18.30XA Fall on same level, unspecified, initial encounter; Z88.5 Allergy status to narcotic agent; Z88.2 Allergy status to sulfonamides; Z91.048 Other nonmedicinal substance allergy status; Z79.899 Other long term (current) drug therapy; Z79.82 Long term (current) use of aspirin; J44.9 Chronic obstructive pulmonary disease, unspecified; I10 Essential (primary) hypertension; Z87.891 Personal history of nicotine dependence; Z85.118 Personal history of other malignant neoplasm of bronchus and lung
CPT/HCPCS: 36415; 70450; 72128; 72131; 72170; 80053; 84484; 85025; 93005; 93010; 96374; 99285-25; A9270; A9270-GY; J2405